=== PATIENT | male | born 1995 | race Two or more races ===

== ENCOUNTER 2017-09-10 20:09 | Inpatient (IN) | payer BC, OTHER ==
[~2017-09-10] VITALS: Ht 182.9 cm; Wt 70.2 kg
[~2017-09-10 20:09] MED LIST: ACETYLCYSTEINE IV ONE; DEXTROSE 5% IV ONE
[2017-09-10] MEDS ORDERED: SODIUM CHLORIDE 0.9% 1,000 ML IV ONE (20:48)
[2017-09-10] MEDS ORDERED: DEXTROSE 5% IV ONE (21:00)
[2017-09-10] MEDS ORDERED: SODIUM CHLORIDE 0.9% 1,000ML IVBOLUS ONE (21:00)
[2017-09-10] MEDS ORDERED: ACETYLCYSTEINE IV ONE (21:00)
[2017-09-10 21:13] LABS: BASOPHILS # (AUTO) 0.03 x10^3/uL (0-0.3); BASOPHILS % (AUTO) 0 % (0-1); EOSINOPHILS % (AUTO) 0 % (1-7); LYMPHOCYTES # (AUTO) 1.78 x10^3/uL (1-6.1); LYMPHOCYTES % (AUTO) 10 % (22-44); MD NO; MEAN CORPUSCULAR HEMOGLOBIN 30.4 pg (27.5-34.5); MEAN CORPUSCULAR HGB CONC 34.2 g/dL (33.2-36.2); MEAN CORPUSCULAR VOLUME 88.9 fL (81-97); MEAN PLATELET VOLUME 7.9 fL (7.4-10.4); MONOCYTES # (AUTO) 0.38 x10^3/uL (0-1.4); MONOCYTES % (AUTO) 2 % (2-9); NEUTROPHILS # (AUTO) 15.63 x10^3/uL (1.8-8.0); NEUTROPHILS % (AUTO) 88 % (42-75); PLATELET COUNT 365 x10^3/uL (130-400); RED BLOOD COUNT 5.15 x10^6/uL (4.38-5.82)
[2017-09-10 21:17] LABS: INTERNATIONAL NORMALIZED RATIO 1.36 (0.93-1.1); PROTHROMBIN TIME 13.9 Seconds (9.6-11.5)
[2017-09-10 21:20] LABS: ALANINE AMINOTRANSFERASE 59 U/L (12-78); ALBUMIN 4.7 g/dL (3.4-5.0); ANION GAP 14 mmol/L (5-15); CHLORIDE 106 mmol/L (98-107); CREATININE 1.49 mg/dL (0.7-1.3)
[2017-09-10 21:23] LABS: ACETAMINOPHEN 45 mcg/mL (10-30); ALKALINE PHOSPHATASE 74 U/L (45-117); BILIRUBIN,TOTAL 0.7 mg/dL (0.2-1.0); SALICYLATE LEVEL 36.7 mg/dL (2.8-20.0); TOTAL PROTEIN 8.8 g/dL (6.4-8.2)
[2017-09-10] MEDS ORDERED: SERT100T5 PO (21:32)
[2017-09-10] MEDS ORDERED: POTASSIUM CHLORIDE 40 MEQ in SODIUM CHLORIDE 0.9% 500 ML IV ONE (22:00)
[2017-09-10] MEDS ORDERED: SODIUM BICARBONATE 8.4% 150 MEQ in SODIUM CHLORIDE 0.45% 1,000 ML IV SCH (22:00)
[2017-09-10] MEDS ORDERED: ONDANSETRON 2MG/ML, 2ML IVPush ONE (22:30)
[2017-09-10] MEDS ORDERED: PANTOPRAZOLE 80 MG in SODIUM CHLORIDE 0.9% 50 ML IV ONE (22:30)
[2017-09-10] MEDS ORDERED: ONDANSETRON 2MG/ML, 2ML ONE (22:40)
[2017-09-10] MEDS ORDERED: ACETYLCYSTEINE 3,200 MG in DEXTROSE 5% 500 ML IV ONE (23:00)
[2017-09-10] MEDS: PANTOPRAZOLE 80 MG in SODIUM CHLORIDE 0.9% 100 ML IV SCH (23:13)
[2017-09-11] MEDS ORDERED: SODIUM CHLORIDE 0.9% 1,000 ML IV SCH (00:55)
[2017-09-11] MEDS ORDERED: SODIUM CHLORIDE 0.9% 1,000ML IV ONE (01:00)
[2017-09-11] MEDS ORDERED: GLUCAGON 1 MG IM PRN (01:00)
[2017-09-11] MEDS ORDERED: PHARMACY MAY ADJ FOR RENAL FX MC SCH (01:00)
[2017-09-11] MEDS ORDERED: DEXTROSE 50%, 50ML SYRINGE IVPush PRN (01:00)
[2017-09-11] MEDS ORDERED: DEXTROSE 4 GM TAB.CHEW PO PRN (01:00)
[2017-09-11 01:02] LABS: AMPHETAMINE SCREEN, URINE Negative (Negative); BARBITURATE SCREEN, URINE Negative (Negative); BENZODIAZEPINE SCREEN, URINE Negative (Negative); CANNABINOID SCREEN, URINE Negative (Negative); COCAINE SCREEN, URINE Negative (Negative); METHADONE SCREEN, URINE Negative (Negative); OPIATE SCREEN, URINE Negative (Negative)
[2017-09-11 01:33] LABS: O2 FLOW ROOM AIR L/min
[2017-09-11 01:42] LABS: INTERNATIONAL NORMALIZED RATIO 1.66 (0.93-1.1); PROTHROMBIN TIME 16.9 Seconds (9.6-11.5)
[2017-09-11 01:46] LABS: ALANINE AMINOTRANSFERASE 50 U/L (12-78); ALBUMIN 3.6 g/dL (3.4-5.0); ANION GAP 12 mmol/L (5-15); CALCIUM 7.9 mg/dL (8.5-10.1); CHLORIDE 113 mmol/L (98-107); CREATININE 1.02 mg/dL (0.7-1.3)
[2017-09-11 01:48] LABS: ALKALINE PHOSPHATASE 51 U/L (45-117); BILIRUBIN,TOTAL 0.6 mg/dL (0.2-1.0); TOTAL PROTEIN 6.8 g/dL (6.4-8.2)
[2017-09-11 02:09] LABS: MICROSCOPIC NOT IND
[2017-09-11] MEDS ORDERED: DEXTROSE 5% IV ONE (03:30)
[2017-09-11] MEDS ORDERED: ACETYLCYSTEINE IV ONE (03:30)
[2017-09-11] MEDS ORDERED: ONDANSETRON 2MG/ML, 2ML ONE (04:10)
[2017-09-11] MEDS: ONDANSETRON 2MG/ML, 2ML IV PRN (04:17)
[2017-09-11] MEDS ORDERED: SODIUM CHLORIDE 0.9% 1,000 ML IV ONE (04:38)
[2017-09-11 05:16] LABS: BASOPHILS # (AUTO) 0.04 x10^3/uL (0-0.3); BASOPHILS % (AUTO) 0 % (0-1); EOSINOPHILS % (AUTO) 0 % (1-7); LYMPHOCYTES # (AUTO) 2.47 x10^3/uL (1-6.1); LYMPHOCYTES % (AUTO) 17 % (22-44); MD NO; MEAN CORPUSCULAR HEMOGLOBIN 29.9 pg (27.5-34.5); MEAN CORPUSCULAR VOLUME 88.2 fL (81-97); MEAN PLATELET VOLUME 7.8 fL (7.4-10.4); MONOCYTES # (AUTO) 1.09 x10^3/uL (0-1.4); MONOCYTES % (AUTO) 7 % (2-9); NEUTROPHILS # (AUTO) 11.25 x10^3/uL (1.8-8.0); NEUTROPHILS % (AUTO) 76 % (42-75); PLATELET COUNT 273 x10^3/uL (130-400); RED BLOOD COUNT 4.13 x10^6/uL (4.38-5.82); RED CELL DISTRIBUTION WIDTH 13.2 % (9.4-14.8)
[2017-09-11 05:17] LABS: INTERNATIONAL NORMALIZED RATIO 1.71 (0.93-1.1); PROTHROMBIN TIME 17.4 Seconds (9.6-11.5)
[2017-09-11] MEDS ORDERED: OMNIPAQUE 350 MG/ML, 100ML BOTTLE ONE (05:21)
[2017-09-11 05:22] LABS: ALBUMIN 3.4 g/dL (3.4-5.0); ANION GAP 15 mmol/L (5-15); CALCIUM 8.2 mg/dL (8.5-10.1); CHLORIDE 112 mmol/L (98-107)
[2017-09-11 05:35] LABS: ALANINE AMINOTRANSFERASE 40 U/L (12-78); ALKALINE PHOSPHATASE 50 U/L (45-117); BILIRUBIN,TOTAL 0.7 mg/dL (0.2-1.0); TOTAL PROTEIN 6.5 g/dL (6.4-8.2)
[2017-09-11] MEDS ORDERED: PIPERACILLIN/TAZO/PMX 3.375GM 50 ML ONE (05:57)
[2017-09-11] MEDS: PIPERACILLIN/TAZO/PMX 3.375GM 50 ML IV SCH ×3 (06:03→22:36)
[2017-09-11] MEDS: PANTOPRAZOLE 80 MG in SODIUM CHLORIDE 0.9% 100 ML IV SCH ×2 (08:30→16:40)
[2017-09-11 08:36] LABS: SALICYLATE LEVEL 22.7 mg/dL (2.8-20.0)
[2017-09-11] MEDS ORDERED: SODIUM BICARBONATE 8.4% 150 MEQ in DEXTROSE 5% 1,000 ML IV ONE (09:00)
[2017-09-11] MEDS: SODIUM CHLORIDE FLUSH 10ML SYR IVF SCH ×2 (09:00→22:36)
[2017-09-11] MEDS ORDERED: POTASSIUM CHLORIDE 20 MEQ TAB.ER.PRT PO ONE (10:30)
[2017-09-11] MEDS ORDERED: POTASSIUM CHLORIDE 20 MEQ TAB.ER.PRT ONE (10:41)
[2017-09-11] MEDS ORDERED: SODIUM CHLORIDE 0.45% SCH (11:00)
[2017-09-11] MEDS ORDERED: [UNRECOGNIZED DRUG - OTHER] SCH (11:00)
[2017-09-11 13:24] VITALS: BP 109/60
[2017-09-11 13:49] VITALS: BP 120/62
[2017-09-11 18:41] LABS: ANION GAP 8 mmol/L (5-15); CALCIUM 8.4 mg/dL (8.5-10.1); CHLORIDE 111 mmol/L (98-107)
[2017-09-11] MEDS ORDERED: POTASSIUM CHLORIDE 40 MEQ in SODIUM CHLORIDE 0.9% 500 ML IV ONE (19:00)
[2017-09-11 20:00] VITALS: BP 110/58
[2017-09-11] MEDS: SODIUM CHLORIDE 0.9% 1,000 ML IV SCH (22:37)
[2017-09-12] VITALS: BP 112/54
[2017-09-12] MEDS: PANTOPRAZOLE 80 MG in SODIUM CHLORIDE 0.9% 100 ML IV SCH ×2 (00:25→10:42)
[2017-09-12] MEDS: PIPERACILLIN/TAZO/PMX 3.375GM 50 ML IV SCH (04:01)
[2017-09-12 04:10] VITALS: BP 126/74
[2017-09-12] MEDS: SODIUM CHLORIDE 0.9% 1,000 ML IV SCH (04:11)
[2017-09-12] MEDS ORDERED: ALUMINUM/MAG/SIMETHICONE 30 ML UDC PO PRN (04:30)
[2017-09-12] MEDS: ONDANSETRON 2MG/ML, 2ML IV PRN (05:03)
[2017-09-12 05:50] LABS: INTERNATIONAL NORMALIZED RATIO 1.47 (0.93-1.1)
[2017-09-12 05:59] LABS: CHLORIDE 113 mmol/L (98-107)
[2017-09-12 06:28] LABS: ANION GAP 9 mmol/L (5-15); CALCIUM 8.8 mg/dL (8.5-10.1)
[2017-09-12] MEDS ORDERED: POTASSIUM CHLORIDE 20 MEQ TAB.ER.PRT PO ONE ×2 (07:00→08:00)
[2017-09-12 07:10] LABS: BASOPHILS # (AUTO) 0.02 x10^3/uL (0-0.3); BASOPHILS % (AUTO) 0 % (0-1); EOSINOPHILS % (AUTO) 0 % (1-7); LYMPHOCYTES # (AUTO) 1.72 x10^3/uL (1-6.1); LYMPHOCYTES % (AUTO) 24 % (22-44); MD NO; MEAN CORPUSCULAR HEMOGLOBIN 30.7 pg (27.5-34.5); MEAN CORPUSCULAR HGB CONC 34.2 g/dL (33.2-36.2); MEAN CORPUSCULAR VOLUME 89.7 fL (81-97); MEAN PLATELET VOLUME 8.2 fL (7.4-10.4); MONOCYTES # (AUTO) 0.67 x10^3/uL (0-1.4); MONOCYTES % (AUTO) 10 % (2-9); NEUTROPHILS # (AUTO) 4.62 x10^3/uL (1.8-8.0); NEUTROPHILS % (AUTO) 66 % (42-75); PLATELET COUNT 201 x10^3/uL (130-400); RED CELL DISTRIBUTION WIDTH 13.6 % (9.4-14.8)
[2017-09-12 07:45] VITALS: BP 107/65
[2017-09-12] MEDS: POTASSIUM CHLORIDE 10 MEQ in SODIUM CHLORIDE 0.45% 1,000 ML IV SCH ×2 (09:03→21:00)
[2017-09-12] MEDS: SODIUM CHLORIDE FLUSH 10ML SYR IVF SCH ×2 (09:03→21:01)
[2017-09-12 10:12] VITALS: BP 99/64
[2017-09-12 12:42] VITALS: BP 101/61
[2017-09-12] MEDS ORDERED: MAGNESIUM HYDROXIDE 8%, 30ML UDC PO PRN (18:30)
[2017-09-12 19:09] VITALS: BP 125/78
[2017-09-12] MEDS: PANTOPRAZOLE 40 MG IV IVPush SCH (21:00)
[2017-09-13 04:11] VITALS: BP 109/66
[2017-09-13 05:41] LABS: CHLORIDE 110 mmol/L (98-107)
[2017-09-13 05:50] LABS: ALANINE AMINOTRANSFERASE 37 U/L (12-78); ALBUMIN 3.2 g/dL (3.4-5.0); ALKALINE PHOSPHATASE 47 U/L (45-117); ANION GAP 6 mmol/L (5-15); BILIRUBIN,TOTAL 1.1 mg/dL (0.2-1.0); CALCIUM 8.5 mg/dL (8.5-10.1); CREATININE 0.84 mg/dL (0.7-1.3); TOTAL PROTEIN 6.1 g/dL (6.4-8.2)
[2017-09-13 05:54] LABS: ACETAMINOPHEN < 2 mcg/mL (10-30); SALICYLATE LEVEL < 1.7 mg/dL (2.8-20.0)
[2017-09-13 06:18] LABS: MEAN CORPUSCULAR HGB CONC 34.3 g/dL (33.2-36.2); MEAN CORPUSCULAR VOLUME 90.4 fL (81-97); PLATELET COUNT 198 x10^3/uL (130-400); RED BLOOD COUNT 3.77 x10^6/uL (4.38-5.82); RED CELL DISTRIBUTION WIDTH 13.7 % (9.4-14.8)
[2017-09-13 06:36] LABS: BASOPHILS # (AUTO) 0.02 x10^3/uL (0-0.3); BASOPHILS % (AUTO) 0 % (0-1); EOSINOPHILS # (AUTO) 0.03 x10^3/uL (0-0.8); EOSINOPHILS % (AUTO) 1 % (1-7); LYMPHOCYTES # (AUTO) 2.15 x10^3/uL (1-6.1); LYMPHOCYTES % (AUTO) 40 % (22-44); MD SCAN; MONOCYTES # (AUTO) 0.41 x10^3/uL (0-1.4); MONOCYTES % (AUTO) 8 % (2-9); NEUTROPHILS # (AUTO) 2.82 x10^3/uL (1.8-8.0); NEUTROPHILS % (AUTO) 52 % (42-75)
[2017-09-13] MEDS: SODIUM CHLORIDE FLUSH 10ML SYR IVF SCH ×2 (08:20→20:10)
[2017-09-13] MEDS: POTASSIUM CHLORIDE 10 MEQ in SODIUM CHLORIDE 0.45% 1,000 ML IV SCH (08:20)
[2017-09-13] MEDS: PANTOPRAZOLE 40 MG IV IVPush SCH (08:21)
[2017-09-13 08:30] VITALS: BP 125/72
[2017-09-13] MEDS: POLYETHYLENE GLYCOL 17 GM PACKET PO SCH (09:00)
[2017-09-13 15:53] VITALS: BP 125/68
[2017-09-13] MEDS: PANTOPROZOLE 40MG TABLET PO SCH (18:21)
[2017-09-13 20:13] VITALS: BP 118/70
[2017-09-13] MEDS ORDERED: MIRTAZAPINE 15 MG TABLET PO SCH (21:00)
[2017-09-14 02:00] VITALS: BP 110/79
[2017-09-14 05:55] LABS: BASOPHILS # (AUTO) 0.04 x10^3/uL (0-0.3); BASOPHILS % (AUTO) 1 % (0-1); EOSINOPHILS # (AUTO) 0.11 x10^3/uL (0-0.8); EOSINOPHILS % (AUTO) 2 % (1-7); LYMPHOCYTES # (AUTO) 2.89 x10^3/uL (1-6.1); LYMPHOCYTES % (AUTO) 54 % (22-44); MD NO; MEAN CORPUSCULAR HEMOGLOBIN 30.8 pg (27.5-34.5); MEAN CORPUSCULAR HGB CONC 33.7 g/dL (33.2-36.2); MEAN CORPUSCULAR VOLUME 91.2 fL (81-97); MEAN PLATELET VOLUME 7.9 fL (7.4-10.4); MONOCYTES # (AUTO) 0.37 x10^3/uL (0-1.4); MONOCYTES % (AUTO) 7 % (2-9); NEUTROPHILS # (AUTO) 1.97 x10^3/uL (1.8-8.0); NEUTROPHILS % (AUTO) 37 % (42-75); PLATELET COUNT 228 x10^3/uL (130-400); RED BLOOD COUNT 4.28 x10^6/uL (4.38-5.82); RED CELL DISTRIBUTION WIDTH 13.4 % (9.4-14.8)
[2017-09-14 06:02] LABS: INTERNATIONAL NORMALIZED RATIO 1.13 (0.93-1.1); PROTHROMBIN TIME 11.6 Seconds (9.6-11.5)
[2017-09-14 06:08] LABS: CHLORIDE 111 mmol/L (98-107)
[2017-09-14 06:20] LABS: ALANINE AMINOTRANSFERASE 32 U/L (12-78); ALBUMIN 3.5 g/dL (3.4-5.0); ALKALINE PHOSPHATASE 47 U/L (45-117); ANION GAP 6 mmol/L (5-15); BILIRUBIN,TOTAL 0.9 mg/dL (0.2-1.0); CALCIUM 8.7 mg/dL (8.5-10.1); CREATININE 0.95 mg/dL (0.7-1.3); TOTAL PROTEIN 6.7 g/dL (6.4-8.2)
[2017-09-14 08:35] VITALS: BP 106/69
[2017-09-14] MEDS: PANTOPROZOLE 40MG TABLET PO SCH ×2 (08:52→16:24)
[2017-09-14] MEDS: SODIUM CHLORIDE FLUSH 10ML SYR IVF SCH ×2 (08:54→21:52)
[2017-09-14] MEDS: POLYETHYLENE GLYCOL 17 GM PACKET PO SCH (08:54)
[2017-09-14 14:45] VITALS: BP 136/82
[2017-09-14 20:32] VITALS: BP 115/71
[2017-09-14] MEDS ORDERED: MIRTAZAPINE 15 MG TABLET PO SCH (21:00)
[2017-09-15 03:44] VITALS: BP 104/63
[2017-09-15 06:58] VITALS: BP 108/67
[2017-09-15] MEDS: POLYETHYLENE GLYCOL 17 GM PACKET PO SCH (09:00)
[2017-09-15] MEDS: PANTOPROZOLE 40MG TABLET PO SCH (09:02)
[2017-09-15] MEDS: SODIUM CHLORIDE FLUSH 10ML SYR IVF SCH (09:02)
[2017-09-15 12:11] VITALS: BP 111/71
[2017-09-15] MEDS ORDERED: MIRT30TA6 PO (14:45)
[2017-09-15] MEDS ORDERED: PANT40TA5 PO (14:49)
== END 2017-09-15 17:24 | disposition home or self-care (01) | DRG 918 ==
LOC: ED 21:42 → EDIP 21:43 → ED 22:02 → 5SO 09-11 13:26 → 3NE 09-14 17:43 → UNDODISIN 09-15 16:09 → DCLOUNGE 09-15 16:48
PROVIDERS: ADMIT Surgery; ATTEND Surgery
DX: T39.012A Poisoning by aspirin, intentional self-harm, initial encounter (principal); K92.0 Hematemesis; F33.2 Major depressive disorder, recurrent severe without psychotic features; N17.9 Acute kidney failure, unspecified; E87.2 Acidosis; D64.9 Anemia, unspecified; T43.221A Poisoning by selective serotonin reuptake inhibitors, accidental (unintentional), initial encounter; D72.829 Elevated white blood cell count, unspecified; E87.6 Hypokalemia; F41.9 Anxiety disorder, unspecified; T39.1X2A Poisoning by 4-Aminophenol derivatives, intentional self-harm, initial encounter; Y92.89 Other specified places as the place of occurrence of the external cause; Z79.82 Long term (current) use of aspirin
CPT/HCPCS: 36415; 36600; 74177; 80048; 80053; 80307; 80329; 81003; 82803; 83735; 84100; 85025; 85610; 85730; 93005; J0132; J2405; J2543; J3480; J7060; J7070; Q9967; C9113; G0479; G0480; J7030; J7040